=== PATIENT | female | born 1990 | race African-American/Black ===

== ENCOUNTER 2017-01-26 12:28 | Emergency (ER) | payer MEDICAID ==
[~2017-01-26] VITALS: Ht 182.9 cm; Wt 130.0 kg
[~2017-01-26 12:28] MED LIST: DEPA500T3 PO; LORA-392 PO; PROZ20CA11 PO; SERO300T PO; TOPA100T11 PO
[2017-01-26 12:33] VITALS: BP 132/80; PULSE 116; RESP 18; TEMP 97.9; O2SAT 96
--- NOTE | 2017-01-26 12:43 | PD ---
HPI Chief Complaint: Seizure Time Seen by Provider: 12:43 Travel History International Travel<30 days: No Contact w/Intl Traveler<30days: No Traveled to known affect area: No History of Present Illness HPI 26-year-old female with a history of nonverbal autism and seizure disorder presents to the emergency department by EMS for evaluation of seizure. Per EMS report the patient was noted to have a generalized tonic-clonic seizure lasting about 1 minute while sitting in the car. She did not fall and hit her head or injure herself in any way. The patient was with her horse race timer at the time this occurred who called EMS. There was no tongue biting, urinary or bowel incontinence. The patient's mother is not bedside and states that her last breakthrough seizure was about 4 months ago. His mother states that she is currently at her mental status and behavioral baseline. States that she's on Depakote and Topamax and has been on these for several years, no recent changes in doses. States that she has not missed any doses of her medications. Patient 's mother states that the patient has had no recent cough or cold symptoms, fever, chills, nausea, vomiting, head trauma. No other complaints. PFSH Past Medical History Blood Disorders: No Anxiety: No Depression: No Cancer: No Developmental Delay: Yes (AUTISM) Diminished Hearing: No Gastrointestinal Disorders: Yes (RECENT VIRAL INFECTION OF LIPS/MOUTH) Musculoskeletal: No Neurologic: Yes (Epilepsy) Psychiatric: Yes (MUTE AUTISTIC) Reproductive: No Seizures: Yes ?: Not Past Surgical History Body Medical Devices: AUTISTIC Other Surgery: No Social History Alcohol Use: No Tobacco Use: No Substance Use: No Allergies-Medications (Allergen,Severity, Reaction): Coded Allergies: Dilantin (Verified Allergy, Severe, BLISTERS, SWELLING, 01/26/17) Reported Meds & Prescriptions Reported Meds & Active Scripts Active Keflex (Cephalexin) 500 Mg Cap 500 Mg PO Q12H 7 Days Seroquel (Quetiapine Fumarate) 300 Mg Tab 300 Mg PO DAILY @08,12,20 Ativan (Lorazepam) 0.5 Mg Tab 0.5 Mg PO DAILY @ 08,12,20 PRN Prozac (Fluoxetine HCl) 20 Mg Cap 20 Mg PO DAILY Depakote ER (Divalproex Sodium) 500 Mg Espinoza 500 Mg PO TID Topamax (Topiramate) 100 Mg Tab 100 Mg PO TID Review of Systems ROS Limitations: Poor Historian Except as stated in HPI: all other systems reviewed are Neg Physical Exam Exam Limitations: Poor Historian (autism and nonverbal) Narrative GENERAL: Well-nourished and well-developed female patient in no acute distress who is nontoxic appearing. SKIN: Warm and dry. HEAD: Normocephalic and atraumatic. No bony point tenderness or crepitus noted throughout the sinuses. EYES: No injection, drainage, or hyphema noted. PERRLA. EOMI. ENT: No nasal drainage noted. Oropharynx is clear. NECK: Supple and the trachea is midline. CARDIOVASCULAR: Regular rate and rhythm. RESPIRATORY: Breath sounds are equal bilaterally with no accessory muscle use, wheezing, rhonchi, or crackles. GASTROINTESTINAL: Abdomen is soft, non-tender, and nondistended. MUSCULOSKELETAL: No obvious deformities, swelling, cyanosis, or ecchymosis is present throughout the upper and lower extremities. Patient has full range of motion without any signs of neurovascular compromise. NEUROLOGICAL: Awake, alert, and oriented. Nonverbal. Normal gait. Cranial nerves are grossly intact. Data Data Last Documented VS Vital Signs Date Time Temp Pulse Resp B/P Pulse Ox O2 Delivery O2 Flow Rate FiO2 01/26/17 13:21 96 Room Air 01/26/17 12:33 97.9 116 18 132/80 Orders Complete Blood Count With Diff (01/26/17 12:42) Basic Metabolic Panel (Bmp) (01/26/17 12:42) Valproic Acid (Depakene) (01/26/17 12:42) Electrocardiogram (01/26/17 ) Ecg Monitoring (01/26/17 12:42) Iv Access Insert/Monitor (01/26/17 12:42) Oximetry (01/26/17 12:42) Sodium Chloride 0.9% Flush (Ns Flush) (01/26/17 12:45) Urinalysis - C+S If Indicated (01/26/17 12:46) Urine Culture (01/26/17 13:15) Labs Laboratory Tests Test 01/26/17 01/26/17 13:00 13:15 White Blood Count 5.2 TH/MM3 Red Blood Count 4.13 MIL/MM3 Hemoglobin 11.8 GM/DL Hematocrit 35.7 % Mean Corpuscular Volume 86.5 FL Mean Corpuscular Hemoglobin 28.5 PG Mean Corpuscular Hemoglobin 33.0 % Concent Red Cell Distribution Width 13.8 % Platelet Count 168 TH/MM3 Mean Platelet Volume 7.5 FL Neutrophils (%) (Auto) 65.3 % Lymphocytes (%) (Auto) 25.2 % Monocytes (%) (Auto) 8.8 % Eosinophils (%) (Auto) 0.5 % Basophils (%) (Auto) 0.2 % Neutrophils # (Auto) 3.4 TH/MM3 Lymphocytes # (Auto) 1.3 TH/MM3 Monocytes # (Auto) 0.5 TH/MM3 Eosinophils # (Auto) 0.0 TH/MM3 Basophils # (Auto) 0.0 TH/MM3 CBC Comment DIFF FINAL Differential Comment Sodium Level 139 MEQ/L Potassium Level 3.8 MEQ/L Chloride Level 106 MEQ/L Carbon Dioxide Level 19.7 MEQ/L Anion Gap 13 MEQ/L Blood Urea Nitrogen 11 MG/DL Creatinine 0.81 MG/DL Estimat Glomerular Filtration 104 ML/MIN Rate Random Glucose 160 MG/DL Calcium Level 8.7 MG/DL Valproic Acid (Depakene) Level 81 MCG/ML Urine Color YELLOW Urine Turbidity SLIGHTY CLOUDY Urine pH 6.5 Urine Specific [place] 1.023 Urine Protein 100 mg/dL Urine Glucose (UA) NEG mg/dL Urine Ketones 40 mg/dL Urine Occult Blood NEG Urine Nitrite NEG Urine Bilirubin SMALL Urine Urobilinogen 2.0 MG/DL Urine Leukocyte Esterase TRACE Urine RBC 3 /hpf Urine WBC 14 /hpf Urine Squamous Epithelial 43 /hpf Cells Urine Transitional Epithelial 1 /hpf Cells Urine Bacteria MOD /hpf Urine Hyaline Casts 32 /lpf Urine Mucus MOD /lpf Microscopic Urinalysis Comment CULTURE INDICATED MDM Medical Decision Making Medical Screen Exam Complete: Yes Emergency Medical Condition: Yes Differential Diagnosis Breakthrough seizure versus subtherapeutic Depakote versus electrolyte abnormality Narrative Course 26-year-old female presents to the emergency room by EMS for evaluation of seizure. Patient is afebrile, vital signs are stable. She has a known history of seizure disorder. No focal neurologic deficits. The patient is nonverbal and autistic and all of the history is obtained from her mother. Patient's mother states that she's had breakthrough seizures in the past and has been told by the neurologist how to deal with them at home. States that the horse race timer is not as comfortable dealing with the patient's seizures so she called EMS. IV access is obtained, labs been drawn and sent. CBC is unremarkable. BMP is unremarkable Depakote levels within normal limits at 81. Urinalysis shows 100 protein, 40 ketones, 14 white blood cells, moderate bacteria, moderate mucus. Patient has remained stable and without complaint while here in the emergency department. I discussed the findings with the patient's mother. She'll be treated for urinary tract infection with Keflex. This infection could have lowered her seizure threshold. She agrees to follow up as an outpatient with their neurologist and her primary care. Patient is stable for discharge. I discussed the case with my attending physician Dr. Jimenez who is aware of the patients history, physical examination findings, and treatment plan. Diagnosis Primary Impression: Breakthrough seizure Additional Impression: UTI (urinary tract infection) Qualified Code: N39.0 - Urinary tract infection without hematuria, site unspecified Referrals: Neurologist Primary Care Physician Patient Instructions: General Instructions Additional Instructions: Take medication as prescribed with food and a full glass of water. Follow-up with your Primary Care Physician and neurologist. Return to the ED for any acute worsening of symptoms. Med/Other Pt SpecificInfo: Prescription(s) given Scripts Cephalexin (Keflex)500 Mg Nip599 Mg PO Q12H 7 Days Ref 0 Prov:Lai Jimenez MD 01/26/17 Disposition: 01 DISCHARGE HOME Condition: Stable Lavern Saul Jan 26, 2017 12:43
[2017-01-26] MEDS ORDERED: SODIUM CHLORIDE 0.9% FLUSH 10 ML FLUSH IVF PRN (12:45)
[2017-01-26 13:13] LABS: AUTOMATED NEUTROPHIL # 3.4 TH/MM3 (1.8-7.7); BASOPHIL % 0.2 % (0.0-2.0); EOSINOPHIL % 0.5 % (0.0-4.0); HEMATOCRIT 35.7 % (35.0-46.0); HEMO FLAGS DIFF FINAL; LYMPH % 25.2 % (9.0-44.0); LYMPHOCYTE # 1.3 TH/MM3 (1.0-4.8); MEAN CELL VOLUME 86.5 FL (80.0-100.0); MEAN CORPUSCULAR HEMOGLOBIN 28.5 PG (27.0-34.0); MONO % 8.8 % (0.0-8.0); NEUT % 65.3 % (16.0-70.0); PLATELET COUNT 168 TH/MM3 (150-450); RED BLOOD COUNT 4.13 MIL/MM3 (4.00-5.30); RED CELL DISTRIBUTION WIDTH 13.8 % (11.6-17.2); WHITE BLOOD COUNT 5.2 TH/MM3 (4.0-11.0)
[2017-01-26 13:21] VITALS: O2SAT 96
[2017-01-26 13:28] LABS: BICARBONATE 19.7 MEQ/L (21.0-32.0); POTASSIUM 3.8 MEQ/L (3.5-5.1)
[2017-01-26 13:31] LABS: BLOOD, URINE NEG (NEG); GLUCOSE,URINE NEG (NEG); KETONE, URINE 40 mg/dL (NEG); NITRITE,URINE NEG (NEG); PH, URINE 6.5 (5.0-8.5); URINE COLOR YELLOW (YELLW/STRAW)
[2017-01-26 13:39] LABS: BACTERIA, URINE MOD /hpf; COMMENT (UR) CULTURE INDICATED; CULTURE IF INDICATED CULTURE INDICATED; HYALINE CAST, URINE 32 /lpf (RARE); MUCUS URINE MOD /lpf (OCC); SQUAMOUS EPITHELIAL CELL URINE 43 /hpf (0-5); TRANSITIONAL EPI CELLS, URINE 1 /hpf
[2017-01-26] MEDS ORDERED: CEPH-460 PO (13:41)
--- NOTE | 2017-01-27 15:15 | EKG ---
Date Performed: 01/26/2017 Time Performed: 13:58:32 PTAGE: 26 years EKG: SINUS TACHYCARDIA WITH SHORT MD INTERVAL NONSPECIFIC ST & T-WAVE ABNORMALITY ABNORMAL ECG S nolvia PREVIOUS TRACING 09/26/2004, T-wave changes inferiorly have improved. MD interval remain s short. PREVIOUS TRACIN09/26/2004 09.06 DOCTOR: Mauro Leon Interpretating Date/Time 01/27/2017 15:15:30
== END 2017-01-26 14:27 | disposition home or self-care (01) ==
LOC: NEPE 12:28
DX: G40.909 Epilepsy, unspecified, not intractable, without status epilepticus (principal); N39.0 Urinary tract infection, site not specified; B96.89 Other specified bacterial agents as the cause of diseases classified elsewhere; R94.31 Abnormal electrocardiogram [ECG] [EKG]; F84.0 Autistic disorder
CPT/HCPCS: 80048; 80164; 81001; 85025; 87086; 93005

== ENCOUNTER 2017-08-04 19:41 | Emergency (ER) | payer MEDICAID ==
[~2017-08-04 19:41] MED LIST changes: +CEPH-460 PO; -TOPA100T11 PO; +TOPI100 PO
[2017-08-04 19:43] VITALS: BP 150/94; PULSE 116; RESP 20; TEMP 98.7; O2SAT 97
--- NOTE | 2017-08-04 20:33 | PD ---
HPI Chief Complaint: GI Complaint Time Seen by Provider: 20:23 Travel History International Travel<30 days: No Contact w/Intl Traveler<30days: No Traveled to known affect area: No History of Present Illness HPI 27-year-old female presents to the emergency department by private transportation the care of her mother for evaluation of constipation and possible urinary tract infection and times one breakthrough seizure. Patient has history of seizure disorder and autism with mutism. Mother states that she typically has a bowel movement 2 times per week. Patient has issues with recurrent constipation. Mother states last bowel movement was on Sunday and normal for her. Patient did not have a bowel movement by so mother gave her milk of magnesia on 2 doses on Sunday and then today gave her MiraLAX and an enema but still does not have a bowel movement. Mother noticed that she did have urinary incontinence times one today and then while on the toilet she witnessed her to have a generalized tonic-clonic seizure. There is no injury associated with the seizure and patient was allowed to recover from her typical postictal state. Mother states she has had no fever. She has had no injury. And there has been no interruption in her antiepileptic therapy. Patient is able to communicate with her mother with sounds and some minimal verbalization that is her form of communication and indicates that she's been having some abdominal pain according to mother. No other complaints reported. No report of vomiting and no abdominal surgeries. PFSH Past Medical History Narrative Medical Autism, developmental delay, mutism, seizure disorder, diabetes on Glucophage, intermittent constipation; no tobaccoism; nursing notes reviewed Autoimmune Disease: No Blood Disorders: No Anxiety: No Depression: No Cancer: No Cardiovascular Problems: No Developmental Delay: Yes (AUTISM) Diabetes: Yes Patient Takes Glucophage: Yes Diminished Hearing: No Gastrointestinal Disorders: Yes (RECENT VIRAL INFECTION OF LIPS/MOUTH) Genitourinary: No Headaches: No Musculoskeletal: No Neurologic: Yes (Epilepsy) Psychiatric: Yes (MUTE AUTISTIC) Reproductive: No Respiratory: No Immunizations Current: Yes Seizures: Yes Thyroid Disease: No Ulcer: No ?: Not Past Surgical History Body Medical Devices: AUTISTIC Other Surgery: No Social History Alcohol Use: No Tobacco Use: No Substance Use: No Allergies-Medications (Allergen,Severity, Reaction): Coded Allergies: phenytoin (Unverified Allergy, Severe, BLISTERS, SWELLING, 08/04/17) Reported Meds & Prescriptions Reported Meds & Active Scripts Active Keflex (Cephalexin) 500 Mg Cap 500 Mg PO Q12H 7 Days Seroquel (Quetiapine Fumarate) 300 Mg Tab 300 Mg PO DAILY @08,12,20 Ativan (Lorazepam) 0.5 Mg Tab 0.5 Mg PO DAILY @ 08,12,20 PRN Prozac (Fluoxetine HCl) 20 Mg Cap 20 Mg PO DAILY Depakote ER (Divalproex Sodium) 500 Mg Espinoza 500 Mg PO TID Topamax (Topiramate) 100 Mg Tab 100 Mg PO TID Review of Systems Except as stated in HPI: all other systems reviewed are Neg General / Constitutional: No: Fever HENT: No: Congestion Cardiovascular: No: Chest Pain or Discomfort Respiratory: No: Shortness of Breath Gastrointestinal: Positive: Abdominal Pain, Constipation Genitourinary: Positive: Incontinence (x1 today), No: Decreased Urinary Output Musculoskeletal: No: Pain Neurologic: Positive: Seizures (x1), No: Weakness Hematologic/Lymphatic: No: Lymph Node Enlargement Physical Exam Narrative GENERAL: Well-developed well-nourished female in no acute distress no respiratory distress; triage vital signs heart rate of 116; exam limited as patient uncooperative therefore only allowed to perform with patient sitting upright as refuses to rest supine. SKIN: Warm and dry. HEAD: Normocephalic. EYES: No scleral icterus. No injection or drainage. ENT: Airway is patent NECK: Supple, trachea midline. No JVD or lymphadenopathy. CARDIOVASCULAR: Regular rate and rhythm without murmurs, gallops, or rubs. RESPIRATORY: Breath sounds equal bilaterally. No accessory muscle use. GASTROINTESTINAL: Abdomen soft, mild diffuse tenderness to palpation without demonstration of guarding or rebound, no visible or palpable umbilical hernia, nondistended. MUSCULOSKELETAL: No cyanosis, or edema. BACK: Nontender without obvious deformity. No CVA tenderness. Data Data Last Documented VS Vital Signs Date Time Temp Pulse Resp B/P (MAP) Pulse Ox O2 Delivery O2 Flow Rate FiO2 08/04/17 19:43 98.7 116 20 150/94 (112) 97 Room Air Orders Orders Complete Blood Count With Diff (08/04/17 20:24) Basic Metabolic Panel (Bmp) (08/04/17 20:24) Valproic Acid (Depakene) (08/04/17 20:24) Urinalysis - C+S If Indicated (08/04/17 20:24) Abdomen, Flat & Upright (08/04/17 ) ^ Saline Lock (08/04/17 20:24) Sodium Chlor 0.9% 1000 Ml Inj (Ns 1000 M (08/04/17 23:00) Ketorolac Inj (Toradol Inj) (08/05/17 00:00) Blood Glucose (08/04/17 23:54) Labs Laboratory Tests Test 08/04/17 21:00 08/04/17 21:32 08/04/17 22:25 Blood Urea Nitrogen 7 MG/DL Creatinine 0.72 MG/DL Random Glucose 291 MG/DL Calcium Level 8.9 MG/DL Sodium Level 134 MEQ/L Potassium Level 4.1 MEQ/L Chloride Level 102 MEQ/L Carbon Dioxide Level 19.8 MEQ/L Anion Gap 12 MEQ/L Estimat Glomerular Filtration Rate 118 ML/MIN Valproic Acid (Depakene) Level 69 MCG/ML White Blood Count 7.7 TH/MM3 Red Blood Count 4.48 MIL/MM3 Hemoglobin 12.2 GM/DL Hematocrit 37.5 % Mean Corpuscular Volume 83.7 FL Mean Corpuscular Hemoglobin 27.3 PG Mean Corpuscular Hemoglobin Concent 32.7 % Red Cell Distribution Width 14.1 % Platelet Count 231 TH/MM3 Mean Platelet Volume 7.8 FL Neutrophils (%) (Auto) 65.9 % Lymphocytes (%) (Auto) 23.1 % Monocytes (%) (Auto) 10.3 % Eosinophils (%) (Auto) 0.2 % Basophils (%) (Auto) 0.5 % Neutrophils # (Auto) 5.1 TH/MM3 Lymphocytes # (Auto) 1.8 TH/MM3 Monocytes # (Auto) 0.8 TH/MM3 Eosinophils # (Auto) 0.0 TH/MM3 Basophils # (Auto) 0.0 TH/MM3 CBC Comment DIFF FINAL Differential Comment Urine Color YELLOW Urine Turbidity CLEAR Urine pH 6.5 Urine Specific [place] 1.028 Urine Protein TRACE mg/dL Urine Glucose (UA) 1000 mg/dL Urine Ketones 40 mg/dL Urine Occult Blood NEG Urine Nitrite NEG Urine Bilirubin NEG Urine Urobilinogen LESS THAN 2.0 MG/DL Urine Leukocyte Esterase NEG Urine RBC 6 /hpf Urine WBC 3 /hpf Urine Squamous Epithelial Cells 1 /hpf Urine Mucus FEW /lpf Microscopic Urinalysis Comment CULT NOT INDICATED MDM Medical Decision Making Medical Screen Exam Complete: Yes Emergency Medical Condition: Yes Medical Record Reviewed: Yes Differential Diagnosis Constipation, obstipation, UTI, obstruction, dehydration, renal dysfunction, breakthrough seizure, subtherapeutic anticonvulsant therapy, poorly controlled diabetes Narrative Course IV access obtained specimens collected and sent for resulting Diagnosis Primary Impression: Constipation by delayed colonic transit Additional Impression: Breakthrough seizure Referrals: Primary Care Physician Patient Instructions: General Instructions Additional Instructions: Current increase fluid hydration Follow blood sugars closely Follow-up with primary care provider Continue MiraLAX and for insurance white grape juice to bowel regimen Disposition: 01 DISCHARGE HOME Condition: Stable Sonal Gómez MD Aug 04, 2017 20:33
--- NOTE | 2017-08-04 20:58 | RADRPT ---
EXAM DATE/TIME: 08/04/2017 20:33 [facility] COMPARISON: No previous studies available for comparison. INDICATIONS : Constipation since today. Obstruction. MEDICAL HISTORY : Autism. SURGICAL HISTORY : None. ENCOUNTER: Initial ACUITY: 1 day PAIN SCORE: 0/10 LOCATION: Abdomen. FINDINGS: Supine and upright views of the abdomen were performed. The abdominal bowel gas pattern is normal. No air fluid levels are seen. No abnormal masses, calcifications, or organomegaly is seen. The visu alized lower lungs are clear. No evidence of free intraperitoneal gas. The osseous structures are u nremarkable. CONCLUSION: 1. Nonspecific bowel gas pattern without obstruction or free air. Mild constipation. Mild scoliosis. David Tse MD on August 04, 2017 at 20:55 Board Certified Radiologist. This report was verified electronically.
[2017-08-04 21:39] LABS: BICARBONATE 19.8 MEQ/L (21.0-32.0); POTASSIUM 4.1 MEQ/L (3.5-5.1)
[2017-08-04 21:58] LABS: AUTOMATED NEUTROPHIL # 5.1 TH/MM3 (1.8-7.7); BASOPHIL % 0.5 % (0.0-2.0); EOSINOPHIL % 0.2 % (0.0-4.0); HEMATOCRIT 37.5 % (35.0-46.0); HEMO FLAGS DIFF FINAL; LYMPH % 23.1 % (9.0-44.0); LYMPHOCYTE # 1.8 TH/MM3 (1.0-4.8); MEAN CELL VOLUME 83.7 FL (80.0-100.0); MEAN CORPUSCULAR HEMOGLOBIN 27.3 PG (27.0-34.0); MEAN CORPUSCULAR HGB CONC 32.7 % (32.0-36.0); MONO % 10.3 % (0.0-8.0); NEUT % 65.9 % (16.0-70.0); PLATELET COUNT 231 TH/MM3 (150-450); RED BLOOD COUNT 4.48 MIL/MM3 (4.00-5.30); RED CELL DISTRIBUTION WIDTH 14.1 % (11.6-17.2); WHITE BLOOD COUNT 7.7 TH/MM3 (4.0-11.0)
[2017-08-04 22:45] LABS: BLOOD, URINE NEG (NEG); COMMENT (UR) CULT NOT INDICATED; CULTURE IF INDICATED CULT NOT INDICATED; GLUCOSE,URINE 1000 mg/dL (NEG); KETONE, URINE 40 mg/dL (NEG); MUCUS URINE FEW /lpf (OCC); NITRITE,URINE NEG (NEG); PH, URINE 6.5 (5.0-8.5); SQUAMOUS EPITHELIAL CELL URINE 1 /hpf (0-5); URINE COLOR YELLOW (YELLW/STRAW)
[2017-08-04] MEDS ORDERED: SODIUM CHLOR 0.9% 1000 ML INJ 1,000 ML IV ONE (23:00)
[2017-08-05] MEDS ORDERED: KETOROLAC TROMETHAMINE 30 MG/ML (IVP) VIAL IV PUSH ONE
[2017-08-06] MEDS ORDERED: MIRA3350 PO (17:37)
== END 2017-08-05 00:18 | disposition home or self-care (01) ==
LOC: NEPC 19:41
DX: K59.01 Slow transit constipation (principal); G40.409 Other generalized epilepsy and epileptic syndromes, not intractable, without status epilepticus; F84.0 Autistic disorder
CPT/HCPCS: 74020; 80048; 80164; 81001; 85025; 96374; 99284; J1885; J7030

== ENCOUNTER 2017-08-06 14:34 | Emergency (ER) | payer MEDICAID ==
[2017-08-06 14:35] VITALS: BP 140/83; PULSE 120; RESP 18; O2SAT 96
--- NOTE | 2017-08-06 15:57 | PD ---
HPI Chief Complaint: GI Complaint Time Seen by Provider: 15:39 Travel History International Travel<30 days: No Contact w/Intl Traveler<30days: No Traveled to known affect area: No History of Present Illness HPI 27-year-old Afro-Maced[place] female with history of autism and seizure disorder who lives with her parents, returns today with ongoing complaints of constipation and increasing abdominal distention and discomfort. Patient was seen here 2 days ago with similar complaints. Patient was treated with milk of magnesia, fleets enemas, and MiraLAX without improvement. Pain is now 6 out of 10. It is cramping and diffuse. Patient has not had a normal bowel movement for over a week. Patient has no vomiting but decreased appetite is noted. No fever or chills. Patient is allergic to phenytoin. PFSH Past Medical History Autoimmune Disease: No Blood Disorders: No Anxiety: No Depression: No Cancer: No Cardiovascular Problems: No Developmental Delay: Yes (AUTISM) Diabetes: Yes Patient Takes Glucophage: Yes (METFORMIN) Diminished Hearing: No Gastrointestinal Disorders: Yes (RECENT VIRAL INFECTION OF LIPS/MOUTH) Genitourinary: No Headaches: No Musculoskeletal: No Neurologic: Yes (Epilepsy) Psychiatric: Yes (MUTE AUTISTIC) Reproductive: No Respiratory: No Immunizations Current: Yes Seizures: Yes Thyroid Disease: No Ulcer: No ?: Not Past Surgical History Body Medical Devices: AUTISTIC Other Surgery: No Social History Alcohol Use: No Tobacco Use: No Substance Use: No Allergies-Medications (Allergen,Severity, Reaction): Coded Allergies: phenytoin (Unverified Allergy, Severe, BLISTERS, SWELLING, 08/04/17) Reported Meds & Prescriptions Reported Meds & Active Scripts Active Keflex (Cephalexin) 500 Mg Cap 500 Mg PO Q12H 7 Days Seroquel (Quetiapine Fumarate) 300 Mg Tab 300 Mg PO DAILY @08,12,20 Ativan (Lorazepam) 0.5 Mg Tab 0.5 Mg PO DAILY @ 08,12,20 PRN Prozac (Fluoxetine HCl) 20 Mg Cap 20 Mg PO DAILY Depakote ER (Divalproex Sodium) 500 Mg Espinoza 500 Mg PO TID Topamax (Topiramate) 100 Mg Tab 100 Mg PO TID Review of Systems Except as stated in HPI: all other systems reviewed are Neg General / Constitutional: No: Fever Eyes: No: Visual changes HENT: No: Headaches Cardiovascular: No: Chest Pain or Discomfort Respiratory: No: Shortness of Breath Gastrointestinal: Positive: Nausea, Abdominal Pain, Constipation, Changes in Bowel Habits, Loss of Appetite, No: Vomiting, Diarrhea, Hematemesis, Hematochezia, Indigestion, Dysphagia Genitourinary: No: Dysuria Musculoskeletal: No: Pain Skin: No Rash Neurologic: No: Weakness Psychiatric: No: Depression Endocrine: No: Polydipsia Hematologic/Lymphatic: No: Easy Bruising Physical Exam Narrative GENERAL: Patient appears uncomfortable but in no obvious acute distress. SKIN: Warm and dry. Normal color. Normal turgor. HEAD: Atraumatic. Normocephalic. EYES: Pupils equal and round. No scleral icterus. No injection or drainage. ENT: No nasal bleeding or discharge. Mucous membranes pink and moist. NECK: Trachea midline. No JVD. CARDIOVASCULAR: Regular rate and rhythm. RESPIRATORY: No accessory muscle use. Clear to auscultation. Breath sounds equal bilaterally. GASTROINTESTINAL: Abdomen soft, diffusely mildly tender, moderate distention. Hepatic and splenic margins not palpable. MUSCULOSKELETAL: Extremities without clubbing, cyanosis, or edema. No obvious deformities. NEUROLOGICAL: Awake and alert. No obvious cranial nerve deficits. Motor grossly within normal limits. Five out of 5 muscle strength in the arms and legs. Normal speech. PSYCHIATRIC: Appropriate mood and affect; insight and judgment normal. Data Data Last Documented VS Vital Signs Date Time Temp Pulse Resp B/P (MAP) Pulse Ox O2 Delivery O2 Flow Rate FiO2 08/06/17 14:35 120 18 140/83 (102) 96 Orders Orders Abdomen, Kub Only (08/06/17 ) Lorazepam (Ativan) (08/06/17 16:00) Restraints Non-Violent MISHEL.Q3H (08/06/17 16:28) Midazolam Inj (Versed Inj) (08/06/17 16:30) MDM Medical Decision Making Medical Screen Exam Complete: Yes Emergency Medical Condition: Yes Medical Record Reviewed: Yes Differential Diagnosis Obstipation. Constipation. Fecal impaction Narrative Course Patient is medically stable at time of exam. X-ray of the abdomen flat and upright shows large stool bolus in the rectal vault and moderate ileus. Patient is given 1.5 mg lorazepam by mouth. This is in addition to the 0.5 mg of her home medications which she took prior to arrival. X-ray shows: Supine view of the abdomen was performed. A moderate sized to large fecal bolus is identified in the rectum. Obstruction is noted by radiology. Due to the patient's mental status and history of being combative with any procedures, she was placed in soft restraints, Patient is given 5 mg Versed IM. Fecal disimpaction is attempted with nursing staff assistance. Large amount of stool was removed with nursing assistance. Patient is felt stable for discharge home. Recommend daily MiraLAX dosing. Patient to be followed up with her primary care physician as needed. Patient can return to emergency department if symptoms do not improve. Diagnosis Primary Impression: Fecal impaction in rectum Referrals: Primary Care Physician Patient Instructions: Fecal Impaction (ED), General Instructions, Obstipation ( ED) Additional Instructions: Large amount of stool was removed with nursing assistance. Patient is felt stable for discharge home. Recommend daily MiraLAX dosing. Patient to be followed up with her primary care physician as needed. Patient can return to emergency department if symptoms do not improve. Med/Other Pt SpecificInfo: Prescription(s) given Disposition: DISCHARGE HOME Condition: Stable Jacky Durham Aug 06, 2017 15:57
[2017-08-06] MEDS ORDERED: LORazepam 0.5 MG TAB PO ONE (16:00)
--- NOTE | 2017-08-06 16:09 | RADRPT ---
EXAM DATE/TIME: 08/06/2017 15:29 [facility] COMPARISON: No previous studies available for comparison. INDICATIONS : Constipation and rectal pain. MEDICAL HISTORY : Autism. SURGICAL HISTORY : None. ENCOUNTER: Initial ACUITY: 4 - 6 days PAIN SCORE: 5/10 LOCATION: rectum FINDINGS: Supine view of the abdomen was performed. A moderate sized to large fecal bolus is identified in the rectum. Nondistended air-filled loops of both small and large intestine are noted. There is no evidence of mass effect or free air. CONCLUSION: Fecal impaction within the rectum No evidence of obstruction. Alex Araiza MD on August 06, 2017 at 16:06 Board Certified Radiologist. This report was verified electronically.
[2017-08-06] MEDS ORDERED: MIDAZOLAM HCL 5 MG/ML VIAL (1 ML) IM ONE (16:30)
[2017-08-06] MEDS ORDERED: MIRA3350 PO (17:37)
== END 2017-08-06 19:09 | disposition home or self-care (01) ==
LOC: NEPD 14:34
DX: K56.41 Fecal impaction (principal); F84.0 Autistic disorder; G40.909 Epilepsy, unspecified, not intractable, without status epilepticus
CPT/HCPCS: 74000; 96372; 99285; J2250